=== PATIENT | male | born 1985 | race Caucasian/White ===

== ENCOUNTER 2019-05-02 10:44 | Inpatient (IN) ==
[2019-05-02 11:38] LABS: Basophils # (auto) 0.02 K/uL (0-0.2); Basophils % (auto) 0.3 %; Eosinophils # (auto) 0.09 K/uL (0-0.5); Eosinophils % (auto) 1.4 %; Hematocrit (blood only) 44.4 % (42-52); Hemoglobin 15.7 g/dL (14.0-18.0); Immature Granulocytes # (auto) 0.01 K/uL (0.00-0.02); Immature Granulocytes % (auto) 0.2 %; Lymphocytes # (auto) 1.28 K/uL (1.2-3.4); Lymphocytes % (auto) 20.2 %; Mean Corpuscular Hgb Conc 35.4 g/dL (32-36); Mean Corpuscular Volume 90.6 fL (80-100); Mean Platelet Volume 9.4 fL (7.4-10.4); Monocytes # (auto) 0.65 K/uL (0.11-0.59); Monocytes % (auto) 10.3 %; Neutrophils # (auto) 4.28 K/uL (1.4-6.5); Neutrophils % (auto) 67.6 %; Platelet Count 143 K/uL (130-400); RDW Coefficient of Variation 12.5 % (11.5-14.5); RDW Standard Deviation 41.2 fL (36.4-46.3); White Blood Count 6.33 K/uL (4.8-10.8)
[2019-05-02 11:55] LABS: Alanine Aminotransferase 65 U/L (12-78); Albumin Level 3.9 gm/dl (3.4-5.0); Aspartate Aminotransferase 51 U/L (15-37); BUN Creatinine Ratio 10.8 (10-20); Blood Urea Nitrogen 13 mg/dl (7-18); Calcium 9.1 mg/dl (8.5-10.1); Carbon Dioxide 29 mmol/L (21-32); Chloride 103 mmol/L (98-107); Est GFR (African American) 92.2; Est GFR (Non-African American) 79.5; Glucose 114 mg/dl (70-99); Lipase 349 U/L (73-393); Sodium 137 mmol/L (136-145)
[2019-05-02] MEDS ORDERED: LACTATED RINGER'S 2,000 ML IV ONE (11:55)
[2019-05-02] MEDS ORDERED: HYDROmorphone INJ 1 MG/ML SYRINGE IV STA ×2 (11:55→14:06)
[2019-05-02] MEDS ORDERED: ONDANSETRON INJ 2 MG/ML 2 ML VIAL IV STA (11:55)
[2019-05-02] MEDS ORDERED: FAMOTIDINE 20MG/5ML IV PUSH IV STA (11:56)
[2019-05-02 11:57] LABS: Alkaline Phosphatase 97 U/L (45-117); Bilirubin,Total 0.7 mg/dl (0.2-1); Globulin 3.8 gm/dl (2.5-4.0); Total Protein 7.7 gm/dl (6.4-8.2)
--- NOTE | 2019-05-02 12:05 | Emergency Department Note ---
History of Present Illness General Chief Complaint: Abdominal Pain Stated Complaint: RIGHT SIDE/FLANK/ABDOMINAL PAIN History of Present Illness Maximum Pain Intensity: 9 This patient is a 33-year-old male who presents to the emergency department from rehab for evaluation of epigastric abdominal pain radiating to the back that started yesterday. It is worse with certain movements. He also has had nausea with a few episodes of vomiting. He reports black stools. The patient reports a history of pancreatitis. He is currently in rehab for alcohol withdrawal. He denies any confusion or changes in vision. No fever. The pain is sharp and stabbing in nature. He has not taken anything for pain. Home Medications Home Medications Medication Instructions Recorded Confirmed Type alprazolam [Xanax] 2 mg PO HS 05/02/19 05/02/19 History diazepam [Valium] 10 mg PO HS 05/02/19 05/02/19 History esomeprazole magnesium [Nexium] 40 mg PO DAILY 05/02/19 05/02/19 History folic acid 1 mg PO DAILY 05/02/19 05/02/19 History levetiracetam [Keppra] 500 mg PO BID 05/02/19 05/02/19 History multivitamin 1 tab PO DAILY 05/02/19 05/02/19 History thiamine HCl (vitamin B1) 100 mg PO DAILY 05/02/19 05/02/19 History Allergies Allergy/AdvReac Type Severity Reaction Status Date / Time No Known Allergies Allergy Unverified 05/02/19 12:06 Past Med/Surg History Medical History Alcohol abuse GERD (gastroesophageal reflux disease) Surgical History History of shoulder surgery History of tonsillectomy Family History Grandfather (Maternal) Myocardial infarction Grandmother (Paternal) Coronary heart disease Other Alcohol abuse Social History Preferred Language: Slovak Communication Ability: Effective Ladle Filler Required: No Beliefs That Will Affect Care: None marital status: Current Living Situation: Spouse Current Living Situation Comment: House Other Information That Helps Us Care for You: No Feels Safe at Home: Yes Safety Concerns: Feels Safe At This Time Smoking Status: Never smoker Hx Alcohol Use: Yes (Hx of abuse) Alcohol type: hard liquor Alcohol type Comment: hx of ETOH abuse Alcohol Intake Frequency Comment: last drink 4 days ago Hx Substance Use: No Review of Systems A total of 10 systems reviewed and were otherwise negative Physical Exam Vital Signs: Vital Signs - 24 hr 05/02/19 11:04 05/02/19 11:45 05/02/19 13:17 Temperature 36.8 C Temperature Source Oral Pulse Rate 93 H Pulse Rate [Apical ] 74 71 Pulse Rhythm Regular Pulse Strength Normal Respiratory Rate 16 14 18 Respiratory Effort / Characteristics Non-Labored Respiratory Depth Normal Respiratory Patter n Regular Blood Pressure 117/74 Blood Pressure [Ri ght Arm] 155/92 H 103/52 L Blood Pressure Gwen n 88 Blood Pressure Gwen n [Right Arm] 113 69 Blood Pressure Pos ition Sitting Pulse Oximetry 97 96 95 Oxygen Delivery Me thod Room Air Room Air Sepsis Recent Feve r Within 48 Hours No Sepsis New/Unexpla ined Change in Men madiha Status No Sepsis Action Take n by Nursing No Action Required Constitutional: WD/WN, vitals as above Eyes: EOM intact bilaterally ENMT: external ear and nose normal, oropharynx normal Oral mucosa dry. Neck: trachea midline Respiratory: normal respiratory effort, lungs clear to auscultation Cardiovascular: RRR, no murmur, no edema Gastrointestinal (Abdomen): Bowel sounds present in all 4 quadrants. Sign ificant tenderness to palpation in the epigastric region. No guarding or rebound tenderness appreciated. Musculoskeletal: no cyanosis or clubbing, extremities motor strength 5/5 Skin: no rashes, warm and dry Neurologic: Alert and oriented x3. No focal motor deficits. Psychiatric: Acting appropriately Course Patient was seen and examined Vital signs including blood pressure were reviewed medications list was verified with patient Labs were obtained, and a saline lock was established Medications were ordered Upon reevaluation, the patient's pain was coming back. He was ordered an additional round of pain medication. We discussed his work-up. He voiced understanding. He was in agreement with the plan. [facility] evaluate the patient for possible inpatient management. [facility]ations [facility] Medications Folic Acid (Folvite) 1 mg PO DAILY [facility] Stop: 06/02/19 08:59 Last Admin: 05/03/19 09:00 Dose: 1 mg Documented by: [id number] Hydromorphone HCl (Dilaudid) 0.5 mg IV Q4H PRN PRN Reason: Severe Pain Stop: 05/16/19 18:00 Last Admin: 05/03/19 15:35 Dose: 0.5 mg Documented by: [id number] Admin: 05/03/19 11:13 Dose: 0.5 mg Documented by: [id number] Admin: 05/02/19 22:54 Dose: 0.5 mg Documented by: [id number] Admin: 05/02/19 18:27 Dose: 0.5 mg Documented by: [id number] Lactated Ringer's (Lr) 1,000 mls @ 150 mls/hr IV .Q6H40M [facility] Stop: 06/01/19 15:29 Last Admin: 05/03/19 19:23 Dose: 150 mls/hr Documented by: [id number] Infusion: 05/03/19 19:18 Dose: 150 mls/hr Documented by: [id number] Admin: 05/03/19 12:37 Dose: 150 mls/hr Documented by: [id number] Infusion: 05/03/19 12:18 Dose: 150 mls/hr Documented by: [id number] Admin: 05/03/19 05:37 Dose: 150 mls/hr Documented by: [id number] Infusion: 05/03/19 05:35 Dose: 150 mls/hr Documented by: [id number] Admin: 05/02/19 22:54 Dose: 150 mls/hr Documented by: [id number] Infusion: 05/02/19 22:52 Dose: 150 mls/hr Documented by: [id number] Admin: 05/02/19 16:11 Dose: 150 mls/hr Documented by: [id number] Lorazepam (Ativan) 1 - 3 mg PO UD PRN; Protocol PRN Reason: EtoH Withdrawal AWSS 6-10+ Stop: 06/01/19 18:00 Last Admin: 05/03/19 19:17 Dose: 1 mg Documented by: [id number] Admin: 05/03/19 09:11 Dose: 1 mg Documented by: [id number] Multivitamins (Multivitamin Tab) 1 tab PO DAILY [facility] Stop: 06/02/19 08:59 Last Admin: 05/03/19 09:00 Dose: 1 tab Documented by: [id number] Ondansetron HCl (Zofran) 4 mg IV Q6H PRN PRN Reason: Nausea Stop: 06/01/19 18:00 Last Admin: 05/03/19 15:40 Dose: 4 mg Documented by: [id number] Oxycodone/Acetaminophen (Percocet 5mg/325mg) 1 tab PO Q4H PRN PRN Reason: Moderate Pain Stop: 05/16/19 18:00 Last Admin: 05/03/19 19:18 Dose: 1 tab Documented by: [id number] Admin: 05/03/19 03:18 Dose: 1 tab Documented by: [id number] Pantoprazole Sodium (Protonix) 40 mg PO DAILY [facility] Stop: 06/02/19 08:59 Last Admin: 05/03/19 09:00 Dose: 40 mg Documented by: [id number] Thiamine HCl (Vitamin B-1) 100 mg PO DAILY [facility] Stop: 06/02/19 08:59 Last Admin: 05/03/19 09:00 Dose: 100 mg Documented by: [id number] Discontinued Medications Famotidine (Pepcid 20mg Iv Push) 20 mg IV ONE STA Stop: 05/02/19 11:57 Last Admin: 05/02/19 12:25 Dose: 20 mg Documented by: [id number] Gabapentin (Neurontin) 1,200 mg PO TODAY@1800 [facility] Stop: 05/02/19 19:01 Last Admin: 05/02/19 20:27 Dose: Not Given Documented by: [id number] Hydromorphone HCl (Dilaudid) 1 mg IV NOW STA Stop: 05/02/19 11:56 Last Admin: 05/02/19 12:26 Dose: 1 mg Documented by: [id number] Hydromorphone HCl (Dilaudid) 1 mg IV NOW STA Stop: 05/02/19 14:07 Last Admin: 05/02/19 14:27 Dose: 1 mg Documented by: [id number] Hydroxyzine HCl (Vistaril) 10 mg PO NOW STA Stop: 05/03/19 01:36 Last Admin: 05/03/19 02:06 Dose: 10 mg Documented by: [id number] Lactated Ringer's (Lr) 2,000 mls @ 999 mls/hr IV .Q2H1M ONE Stop: 05/02/19 13:55 Last Infusion: 05/02/19 14:32 Dose: 0 mls/hr Documented by: [id number] Admin: 05/02/19 12:26 Dose: 999 mls/hr Documented by: [id number] Promethazine HCl (Phenergan) 25 mg in 51 mls @ 204 mls/hr IV NOW STA Stop: 05/02/19 14:20 Last Infusion: 05/02/19 14:45 Dose: 0 mls/hr Documented by: [id number] Admin: 05/02/19 14:28 Dose: 204 mls/hr Documented by: [id number] Ioversol (Optiray 320 100ml) 92 ml IV ONCE PRN PRN Reason: Interaction Checking Stop: 05/06/19 12:39 Last Admin: 05/02/19 12:40 Dose: 92 ml Documented by: [id number] Lorazepam (Ativan) 0.5 mg PO NOW STA Stop: 05/03/19 01:32 Last Admin: 05/03/19 01:37 Dose: Not Given Documented by: [id number] Ondansetron HCl (Zofran) 4 mg IV NOW STA Stop: 05/02/19 11:56 Last Admin: 05/02/19 12:26 Dose: 4 mg Documented by: [id number] Medical Decision Making Differential Diagnosis + peptic ulcer disease and + biliary pathology Differential diagnosis: Pancreatitis, pancreatic cyst, abscess, bowel o bstruction, GI bleed, esophagitis, among others Medical Records Attestation: I reviewed the patient's medical records. Home Medications Current Medication List: was personally reviewed by me Laboratory Data Attestation: I reviewed the patient's lab results. Result diagrams: 05/03/19 06:58 05/03/19 06:58 Lab Results 05/02/19 05/02/19 Range/Units 11:24 11:24 WBC 6.33 (4.8-10.8) K/uL RBC 4.90 (4.7-6.1) M/uL Hgb 15.7 (14.0-18.0) g/dL Hct 44.4 (42-52) % MCV 90.6 (80-100) fL MCH 32.0 (25-34) pg MCHC 35.4 (32-36) g/dL RDW Std Deviation 41.2 (36.4-46.3) fL RDW Coeff of Ina 12.5 (11.5-14.5) % Plt Count 143 (130-400) K/uL MPV 9.4 (7.4-10.4) fL Immature Gran % (Auto) 0.2 % Neut % (Auto) 67.6 % Lymph % (Auto) 20.2 % [place] % (Auto) 10.3 % Eos % (Auto) 1.4 % Baso % (Auto) 0.3 % Immature Gran # (Auto) 0.01 (0.00-0.02) K/uL Neut # (Auto) 4.28 (1.4-6.5) K/uL Lymph # (Auto) 1.28 (1.2-3.4) K/uL [place] # (Auto) 0.65 H (0.11-0.59) K/uL Eos # (Auto) 0.09 (0-0.5) K/uL Baso # (Auto) 0.02 (0-0.2) K/uL Sodium 137 (136-145) mmol/L Potassium 4.0 (3.5-5.1) mmol/L Chloride 103 (98-107) mmol/L Carbon Dioxide 29 (21-32) mmol/L Anion Gap 5.0 (3-11) BUN 13 (7-18) mg/dl Creatinine 1.20 (0.6-1.4) mg/dl Est Cr Clr Drug Dosing Not Reportable Est GFR ( Amer) 92.2 Est GFR (Non-Af Amer) 79.5 BUN/Creatinine Ratio 10.8 (10-20) Glucose 114 H (70-99) mg/dl Calcium 9.1 (8.5-10.1) mg/dl Total Bilirubin 0.7 (0.2-1) mg/dl AST 51 H (15-37) U/L ALT 65 (12-78) U/L Alkaline Phosphatase 97 (45-117) U/L Total Protein 7.7 (6.4-8.2) gm/dl Albumin 3.9 (3.4-5.0) gm/dl Globulin 3.8 (2.5-4.0) gm/dl Albumin/Globulin Ratio 1.0 (0.9-2) Lipase 349 (73-393) U/L Imaging Data Attestation: I personally reviewed and interpreted this imaging study as follows: Radiologist's Impression: CT abdomen and pelvis with IV contrast only 1. Mild peripancreatic fat infiltration along the pancreatic head suggesting interstitial edematous pancreatitis. Correlate with lipase. No acute peripancreatic fluid collection. 2. No evidence of biliary ductal dilatation or radiopaque gallstones. 3. Circumferential bladder wall thickening may be due to underdistention or cystitis. Correlate with urinalysis. Electronically signed by: Jose Lomas M.D. 05/02/2019 12:55 PM Blood Pressure Blood Pressure Findings: Normal blood pressure MDM Narrative This patient is a 33-year-old male who presents to the emergency department with epigastric abdominal pain and vomiting. He has a history of alcohol abuse. On exam, vital signs were stable. He was very uncomfortable in appearance. He also appeared dry. Labs reveal no elevation of the lipase. Mild elevation of AST. I was concerned about GI bleed, acute versus chronic pancreatitis. H&H is appropriate. No significant anemia. Imaging was ordered and consistent with pancreatitis. Unfortunately, the patient was still symptomatic after multiple rounds of antiemetics and pain medication. For this reason, the patient will be evaluated by the hospitalist group for possible inpatient management. Impression & Plan Pancreatitis Discharge Plan Visit Data *Final* Discharge Date/Time: 05/02/19 17:34 Chief Complaint: Abdominal Pain Stated Complaint: RIGHT SIDE/FLANK/ABDOMINAL PAIN ED Provider: Edmar Fine ED Midlevel Provider: Lluvia Tapia Discharge Problem: Pancreatitis Patient Disposition: Admitted As Inpatient Condition: Fair Discharge Instructions Interventions: ED Discharge Assessment Last Done: 05/02/19 17:34
[2019-05-02] MEDS ORDERED: IOVERSOL 100ml IV PRN (12:40)
--- NOTE | 2019-05-02 12:56 | CT Scan Report ---
CT abd pelvis IV con only CLINICAL HISTORY: 33 years-old Male presenting with Epigastric abdominal pain n/v hx pancreatitis. TECHNIQUE: Multidetector CT of the abdomen and pelvis was performed after the administration of intra venous contrast. IV contrast: 92 mL of Optiray 320. One or more dose lowering techniques were used co nsistent with the principles of ALARA (as low as reasonably achievable), including automatic exposure control, mA or kV adjustment to individual patient size, and/or use of iterative reconstruction. COMPARISON: None. CT DOSE (mGy.cm): The estimated cumulative dose is 1164.45 mGycm. FINDINGS: Webbing Supervisor topogram: Unremarkable. Lung bases: Normal heart size. No pericardial or pleural effusion. Minimal dependent changes likely a telectasis. Liver: Normal morphology. Density suggestive of hepatic steatosis. No focal lesion. Patent hepatic va sculature. Biliary: No intrahepatic or extrahepatic biliary ductal dilatation. Normal gallbladder. Pancreas: Mild peripancreatic fat infiltration at the level of the pancreatic head and along the desc ending duodenum. Spleen: Normal. Adrenal glands: Normal. Kidneys and ureters: Normal. No hydronephrosis. Bladder: Circumferential bladder wall thickening. Pelvic organs: Prostate and seminal vesicles normal. Bowel: Normal appendix. No bowel obstruction. Peritoneal cavity: No free fluid or intraperitoneal gas. Lymph nodes: Few prominent peripancreatic lymph nodes, subcentimeter and likely reactive. Vasculature: Aorta and IVC patent and normal in caliber. Abdominal wall: Normal. Musculoskeletal: Normal. IMPRESSION: 1. Mild peripancreatic fat infiltration along the pancreatic head suggesting interstitial edematous pancreatitis. Correlate with lipase. No acute peripancreatic fluid collection. 2. No evidence of biliary ductal dilatation or radiopaque gallstones. 3. Circumferential bladder wall thickening may be due to underdistention or cystitis. Correlate with urinalysis. Electronically signed by: Jose Lomas M.D. 05/02/2019 12:55 PM
[2019-05-02] MEDS ORDERED: PROMETHAZINE 25 MG/51 ML BAG IV STA (14:06)
--- NOTE | 2019-05-02 15:38 | History & Physical Report ---
Date of Service May 02, 2019 Assessment & Plan (1) Pancreatitis: (2) Alcohol abuse: This is a 33-year-old male who has a significant past medical history for alcohol abuse who presents to ED secondary to acute onset of abdominal pain x1.5 days. In ED patient CBC and CMP were relatively unremarkable except mildly elevated glucose 114, AST 51. Lipase was normal at 349. CT scan of abdomen pelvis: Mild peripancreatic fat infiltration low pancreatic head suggesting interstitial edematous pancreatitis, also noted circumferential bladder wall thickening concerning for underinflation or cystitis. He received 3 L of IVF while in ED along with 1 mg Dilaudid x2. He currently is feeling improved and pain has improved to 6/10. admit to med/surg tele Continue aggressive fluid resuscitation with LR at 150 cc/h N.p.o. except meds Pain control with 0.5 mg Dilaudid every 4 hours severe pain/5325 oxycodone as needed moderate pain Repeat CBC, CMP, lipase in a.m. Monitor for signs or symptoms of withdrawal (3) S/P alcohol detoxification: Patient self admitted to [facility] alcohol detoxification on 04/29/2019 We will continue their protocol Keppra 500 mg twice daily x14 days for seizure prophylaxis Continue multivitamin, folic acid, thiamine supplementation Continue Valium at bedtime x1, then change to PRN (patient was treated with Valium 10 mg 3 times daily on 04/29, Valium 10 mg twice daily on 04/30, Valium 10 mg at bedtime x2, then as needed) Will place on gabapentin per protocol Lorazepam as needed for at risk Monitor for signs and symptoms of withdrawal, last drink was 04/28 (4) GERD (gastroesophageal reflux disease): continue PPI (5) DVT prophylaxis: SCD/TEDS Disposition: admit to med/surg tele, pt to return to [facility] for ETOH Detox Follow up: PCP in [place] Patient was seen and examined in collaboration with Dr. Ramirez, please see addendum History of Present Illness Chief Complaint: Abdominal pain x1.5 days. Primary Care Provider: NO PCP This is a 33-year-old male who has a significant past medical history for alcohol abuse who presents to ED secondary to acute onset of abdominal pain x1.5 days. He elicits yesterday he had low back pain which he attributed to his chronic back pain; however last evening pain migrated to his epigastric region. Pain was constant, improved with lying down, worse with sitting forward and movement, described as sharp and stabbing with occasional burning. Pain rated as a 9/10. Had similar symptoms in past with acute pancreatitis. Did not try anything for pain relief. Of significance patient recently obtained sobriety in 2018. He recently got in a destination wedding in [facility] on 04/13. "I use this as a reason to binge." He stated [place]-inclusive resort which he states "I cannot even tell you how much I had because I cannot remember." When he returned home from [facility] he continued drinking until 4 days ago on 04/29/2019 when he opted to sign himself into detox at [facility]. He has been at detox facility since 04/29. "They keep you sedated for approximately 15 hours of the day; however, I was more awake yesterday because of pain." He denies any fever, chills, sweats, lightheadedness, dizziness, syncope, chest pain, shortness breath, palpitation, cough, hemoptysis, emesis, diarrhea, change in bowel or urinary habits. Prior to arrival he was significantly nauseous, but this is since subsided. This is his third episode of pancreatitis, age related to alcohol use. "I know what I need to do to stop this." In ED patient CBC and CMP were relatively unremarkable except mildly elevated g lucose 114, AST 51. Lipase was normal at 349. CT scan of abdomen pelvis: Mild peripancreatic fat infiltration low pancreatic head suggesting interstitial edematous pancreatitis, also noted circumferential bladder wall thickening concerning for underinflation or cystitis. He received 3 L of IVF while in ED along with 1 mg Dilaudid x2. He currently is feeling improved and pain has improved to 6/10. Allergies Allergy/AdvReac Type Severity Reaction Status Date / Time No Known Allergies Allergy Unverified 05/02/19 12:06 Home Medications Home Medications Medication Instructions Recorded Confirmed Type alprazolam [Xanax] 2 mg PO HS 05/02/19 05/02/19 History diazepam [Valium] 10 mg PO HS 05/02/19 05/02/19 History esomeprazole magnesium [Nexium] 40 mg PO DAILY 05/02/19 05/02/19 History folic acid 1 mg PO DAILY 05/02/19 05/02/19 History levetiracetam [Keppra] 500 mg PO BID 05/02/19 05/02/19 History multivitamin 1 tab PO DAILY 05/02/19 05/02/19 History thiamine HCl (vitamin B1) 100 mg PO DAILY 05/02/19 05/02/19 History Past Med/Surg History Surgical History (Updated 05/02/19 @ 15:54 by Adeline Kendall PA-C) History of shoulder surgery History of tonsillectomy Family History (Updated 05/02/19 @ 15:52 by Adeline Kendall PA-C) Grandfather (Maternal) Myocardial infarction Grandmother (Paternal) Coronary heart disease Other Alcohol abuse Social History (Updated 05/02/19 @ 15:52 by Adeline Kendall PA-C) Preferred Language: Panamanian Communication Ability: Effective Painter Apprentice Required: No Beliefs That Will Affect Care: None marital status: Current Living Situation: Spouse Current Living Situation Comment: House Other Information That Helps Us Care for You: No Feels Safe at Home: Yes Safety Concerns: Feels Safe At This Time Smoking Status: Never smoker Hx Alcohol Use: Yes (Hx of abuse) Alcohol type: hard liquor Alcohol type Comment: hx of ETOH abuse Alcohol Intake Frequency Comment: last drink 4 days ago Hx Substance Use: No Physical Exam Physical Exam: Constitutional: WD/WN, male, vitals as above, NAD, sitting up in bed, pleasant, conversing easily Head: Normocephalic, Atraumatic Eyes: PERRL, conjunctivae normal, anicteric sclerae ENMT: external ear and nose normal, oropharynx normal Neck: trachea midline, no thyromegaly normal visual inspection Respiratory: normal respiratory effort, lungs clear to auscultation, no wheeze, rales, rhonchi. Normal insp/exp effort, no accessory muscle use Cardiovascular: RRR, no murmur, no edema Vessels: no JVD or carotid bruit Chest: normal inspection of chest Abdomen: normal bowel sounds, soft, tender to palpation in epigastrium, no rebound, guarding, rigidity, no hepatosplenomegaly Musculoskeletal: no cyanosis or clubbing, extremities motor strength 5/5 Skin: no rashes, warm and dry normal turgor Neurologic: PERRL, EOMI, accommodation nl, no face palsy, no dysarthria CN's II-XI intact bilaterally and moves all extremities Psychiatric: A+Ox3, euthymic affect Lymphatic: no cervical or axillary lymphadenopathy : deferred Results & Data Vital Signs (Past 12 Hours) Vital Signs Temp Pulse Pulse Resp BP BP Pulse Ox 05/02/19 13:17 71 18 103/52 L 95 05/02/19 11:45 74 14 155/92 H 96 05/02/19 11:04 36.8 C 93 H 16 117/74 97 Laboratory Results Short CBC 05/02/19 05/02/19 Range/Units 11:24 11:24 WBC 6.33 (4.8-10.8) K/uL Hgb 15.7 (14.0-18.0) g/dL Hct 44.4 (42-52) % Plt Count 143 (130-400) K/uL Creatinine 1.20 (0.6-1.4) mg/dl BMP 05/02/19 11:24 Sodium 137 Potassium 4.0 Chloride 103 Carbon Dioxide 29 BUN 13 Creatinine 1.20 Glucose 114 H Calcium 9.1 Liver Function 05/02/19 Range/Units 11:24 Total Bilirubin 0.7 (0.2-1) mg/dl AST 51 H (15-37) U/L ALT 65 (12-78) U/L Alkaline Phosphatase 97 (45-117) U/L Albumin 3.9 (3.4-5.0) gm/dl Diagnostic Findings CT abd/Pelvis: IMPRESSION: 1. Mild peripancreatic fat infiltration along the pancreatic head suggesting interstitial edematous pancreatitis. Correlate with lipase. No acute peripancreatic fluid collection. 2. No evidence of biliary ductal dilatation or radiopaque gallstones. 3. Circumferential bladder wall thickening may be due to underdistention or cystitis. Correlate with urinalysis. Medications Administered Ioversol (Optiray 320 100ml) 92 ml IV ONCE PRN PRN Reason: Interaction Checking Stop: 05/06/19 12:39 Last Admin: 05/02/19 12:40 Dose: 92 ml Documented by: [id number] Discontinued Medications Famotidine (Pepcid 20mg Iv Push) 20 mg IV ONE STA Stop: 05/02/19 11:57 Last Admin: 05/02/19 12:25 Dose: 20 mg Documented by: [id number] Hydromorphone HCl (Dilaudid) 1 mg IV NOW STA Stop: 05/02/19 11:56 Last Admin: 05/02/19 12:26 Dose: 1 mg Documented by: [id number] Hydromorphone HCl (Dilaudid) 1 mg IV NOW STA Stop: 05/02/19 14:07 Last Admin: 05/02/19 14:27 Dose: 1 mg Documented by: [id number] Lactated Ringer's (Lr) 2,000 mls @ 999 mls/hr IV .Q2H1M ONE Stop: 05/02/19 13:55 Last Infusion: 05/02/19 14:32 Dose: 0 mls/hr Documented by: [id number] Admin: 05/02/19 12:26 Dose: 999 mls/hr Documented by: [id number] Promethazine HCl (Phenergan) 25 mg in 51 mls @ 204 mls/hr IV NOW STA Stop: 05/02/19 14:20 Last Admin: 05/02/19 14:28 Dose: 204 mls/hr Documented by: [id number] Ondansetron HCl (Zofran) 4 mg IV NOW STA Stop: 05/02/19 11:56 Last Admin: 05/02/19 12:26 Dose: 4 mg Documented by: [id number] Code Status & VTE Plan Code Status Full Code VTE Prophylaxis Plan VTE Prophylaxis will be ordered: Yes Supervising Physician Co-Signing Physician Notes I have seen and examined the patient and have discussed the case with the provider above. I agree with the assessment and plan as stated with the following exceptions. After my conversation with him, he doesn't want any sedatives or Keppra. He is also declining gabapentin as he is feeling well now 3 days after last drink, and would like to get better and moving forward with therapy. He appears to have a good understanding of what is going on--states that he is an alcoholic, and now understands he cannot have ANY alcohol, understands pancreatitis and why this is occurring as well as what to expect moving forward, and is excited about his sobriety for his two young daughters as he wasn't a parent the last two times this happened. He is clearly dealing with many stressors including co-parenting two small children, recently getting , mourning the of his brother who was a green beret JULIANN, and dealing with the stress of being away from home on the holidays. Physical exam reveals stable vital signs, clear lungs to auscultation, no acute distress, S1/2 heard on cardiac auscultation without murmurs, severe epigastric pain to palpation with some additional generalized tenderness. Cont supportive care efforts with LR resuscitation, pain control and antiemetics as needed. Keppra and valium titration stopped at patient request. No gabapentin. Lorazepam only as needed or per [place] recommendations. Would encourage patient to establish care with a primary care physician when he returns to [place] area. James,
[2019-05-02] MEDS: LACTATED RINGER'S 1,000 ML IV SCH ×2 (16:11→22:54)
[2019-05-02] MEDS ORDERED: ONDANSETRON INJ 2 MG/ML 2 ML VIAL IV PRN (18:01)
[2019-05-02] MEDS ORDERED: ALUMINUM/MAGNESIUM SUSP 30 ML UDC PO PRN (18:01)
[2019-05-02] MEDS ORDERED: GABAPENTIN 1200MG ALCOHOL WITHDRAWAL LOAD PO STA (18:01)
[2019-05-02] MEDS ORDERED: MAGNESIUM HYDROXIDE SUSP 30 ML UDC PO PRN (18:01)
[2019-05-02] MEDS ORDERED: POLYETHYLENE (MIRALAX) 17 GM PACK PO PRN (18:01)
[2019-05-02] MEDS ORDERED: ACETAMINOPHEN 325 MG TAB PO PRN (18:01)
[2019-05-02] MEDS: HYDROmorphone INJ 0.5 MG/0.5 ML SYR IV PRN ×2 (18:27→22:54)
[2019-05-02] MEDS ORDERED: GABAPENTIN 600 MG TAB PO SCH (19:00)
[2019-05-02 20:43] LABS: Appearance Urine Clear (Clear); Bilirubin Urine Negative (Negative); Blood Urine Negative (Negative); Color Urine Yellow; Glucose Urine UA Negative (Negative); Ketones Urine Negative (Negative); Leukocyte Esterase Urine Negative (Negative); Nitrite Urine Negative (Negative); Protein Urine Negative (Negative); Urobilinogen Urine Negative (Negative)
[2019-05-02] MEDS ORDERED: levETIRAcetam 500 MG TAB PO SCH (21:00)
[2019-05-02] MEDS ORDERED: diazePAM 5 MG TABLET PO SCH (21:00)
[2019-05-02] MEDS ORDERED: ALPRAZolam 0.5 MG TABLET PO SCH (21:00)
[2019-05-03] MEDS ORDERED: LORazepam 0.5 MG TAB PO STA (01:31)
[2019-05-03] MEDS ORDERED: hydrOXYzine HCl 10 MG TAB PO STA (01:35)
[2019-05-03] MEDS: OXYCODONE/ACETAMINOPHEN 5mg/325mg TAB PO PRN ×2 (03:18→19:18)
[2019-05-03] MEDS: LACTATED RINGER'S 1,000 ML IV SCH ×3 (05:37→19:23)
[2019-05-03 07:26] LABS: Basophils # (auto) 0.01 K/uL (0-0.2); Basophils % (auto) 0.2 %; Eosinophils # (auto) 0.09 K/uL (0-0.5); Eosinophils % (auto) 1.5 %; Hematocrit (blood only) 40.8 % (42-52); Hemoglobin 14.1 g/dL (14.0-18.0); Lymphocytes # (auto) 1.76 K/uL (1.2-3.4); Lymphocytes % (auto) 29.9 %; Mean Corpuscular Hemoglobin 31.5 pg (25-34); Mean Corpuscular Hgb Conc 34.6 g/dL (32-36); Mean Corpuscular Volume 91.1 fL (80-100); Mean Platelet Volume 9.6 fL (7.4-10.4); Monocytes # (auto) 0.65 K/uL (0.11-0.59); Monocytes % (auto) 11.1 %; Neutrophils # (auto) 3.37 K/uL (1.4-6.5); Neutrophils % (auto) 57.3 %; Platelet Count 130 K/uL (130-400); RDW Coefficient of Variation 12.5 % (11.5-14.5); RDW Standard Deviation 41.5 fL (36.4-46.3); Red Blood Count 4.48 M/uL (4.7-6.1); White Blood Count 5.88 K/uL (4.8-10.8)
[2019-05-03 08:08] LABS: Albumin Level 3.3 gm/dl (3.4-5.0); BUN Creatinine Ratio 10.4 (10-20); Calcium 8.7 mg/dl (8.5-10.1); Creatinine Clr Calc Pharmacy 127.5 ml/min; Est GFR (African American) 105.9; Est GFR (Non-African American) 91.4; Potassium 3.5 mmol/L (3.5-5.1)
[2019-05-03 08:11] LABS: Bilirubin,Total 0.7 mg/dl (0.2-1); Globulin 3.2 gm/dl (2.5-4.0); Total Protein 6.5 gm/dl (6.4-8.2)
[2019-05-03] MEDS: FOLIC ACID 1 MG TAB PO SCH (09:00)
[2019-05-03] MEDS: THIAMINE HCL 100 MG TAB PO SCH (09:00)
[2019-05-03] MEDS: PANTOprazole 40 MG TAB PO SCH (09:00)
[2019-05-03] MEDS: MULTIVITAMIN TAB PO SCH (09:00)
[2019-05-03] MEDS: LORazepam 1 MG TAB PO PRN ×2 (09:11→19:17)
[2019-05-03] MEDS: HYDROmorphone INJ 0.5 MG/0.5 ML SYR IV PRN ×2 (11:13→15:35)
[2019-05-03] MEDS ORDERED: GABAPENTIN 600 MG TAB PO SCH ×2 (14:00)
[2019-05-03] MEDS ORDERED: diazePAM 5 MG TABLET PO PRN (21:00)
--- NOTE | 2019-05-03 21:00 | Hospitalist Progress Note ---
Date of Service May 03, 2019 Assessment & Plan (1) Abdominal pain: Presented with abdominal pain after binge drinking for about 2 weeks. LFTs essentially normal (except for minimally elevated AST). Initial lipase is 349, repeat 269. CT of abdomen and pelvis showed mild peripancreatic fat infiltration along the pancreatic head suggesting interstitial edematous pancreatitis. No biliary tract abnormalities were appreciated. Seems unlikely that patient has acute pancreatitis with a normal serum lipase. Consider gastritis as another etiology of abdominal pain. Symptoms are improving. Start clear liquid diet. Continue PPI. (2) Alcohol withdrawal: Last alcohol consumption was about 5 days ago. Patient was receiving withdrawal protocol at [facility], but felt too sedated. He declined other options such as gabapentin protocol. Having mild withdrawal symptoms at this time. Continue lorazepam as needed. Continue thiamine, multivitamins. (3) Alcoholism: Ongoing support/counseling. Patient is motivated to be sober and plans on returning to [facility] once he is medically stable. (4) DVT prophylaxis: SCDs ordered. Ambulate. (5) Discharge planning issues: Anticipated return to [facility] once medically stable. Follow-up with PCP in [place] upon returning home. Subjective Recheck for abdominal pain and other problems. Patient seen in their room around 1500. Feels better. Epigastric pain improved. Some nausea, but no emesis. No diarrhea, melena, hematochezia. Required a dose of lorazepam this morning with good results. No hallucinations. Review of Systems: Constitutional- no fever. Cardiac- no chest pain. Pulmonary- no cough or SOB. GI- as noted above. - no urinary symptoms. Otherwise, as noted above. Physical Exam Constitutional: no acute distress Respiratory: no respiratory distress Auscultation: lungs clear to auscultation bilaterally Cardiovascular: Rate/Rhythm: regular rate and regular rhythm Heart Sounds: no gallop, no murmur and no cardiac rub Vessels: no JVD Extremities: no calf tenderness and no edema Gastrointestinal (Abdomen): Inspection/Auscultation: abdomen not distended and + abnormal bowel sounds (quiet) Percussion/Palpation: + abdomen tender (moderate epigastric tenderness) and abdomen soft Skin: no rashes, warm and dry Psychiatric: Orientation: alert and oriented x 3 Results & Data Vital Signs (Past 12 Hours) Vital Signs Temp Pulse Pulse Resp BP BP Pulse Ox 05/03/19 20:02 37.2 C 87 18 149/83 H 94 05/03/19 15:59 74 05/03/19 15:56 36.7 C 82 18 120/73 97 05/03/19 11:30 36.7 C 85 18 145/81 H 96 Laboratory Results Laboratory Results - last 24 hr 05/03/19 05/03/19 06:58 06:58 WBC 5.88 RBC 4.48 L Hgb 14.1 Hct 40.8 L MCV 91.1 MCH 31.5 MCHC 34.6 RDW Std Deviation 41.5 RDW Coeff of Ina 12.5 Plt Count 130 MPV 9.6 Immature Gran % (Auto) 0.0 Neut % (Auto) 57.3 Lymph % (Auto) 29.9 [place] % (Auto) 11.1 Eos % (Auto) 1.5 Baso % (Auto) 0.2 Immature Gran # (Auto) 0.00 Neut # (Auto) 3.37 Lymph # (Auto) 1.76 [place] # (Auto) 0.65 H Eos # (Auto) 0.09 Baso # (Auto) 0.01 Sodium 139 Potassium 3.5 Chloride 103 Carbon Dioxide 30 Anion Gap 5.0 BUN 11 Creatinine 1.07 Est Cr Clr Drug Dosing 127.5 Est GFR ( Amer) 105.9 Est GFR (Non-Af Amer) 91.4 BUN/Creatinine Ratio 10.4 Glucose 86 Calcium 8.7 Total Bilirubin 0.7 AST 42 H ALT 60 Alkaline Phosphatase 78 Total Protein 6.5 Albumin 3.3 L Globulin 3.2 Albumin/Globulin Ratio 1.0 Triglycerides 220 H Cholesterol 186 LDL Cholesterol, Calc 98 VLDL Cholesterol, Calc 44 HDL Cholesterol 44 Cholesterol/HDL Ratio 4 Lipase 269
[2019-05-04] MEDS: LACTATED RINGER'S 1,000 ML IV SCH ×3 (01:40→15:30)
[2019-05-04] MEDS: HYDROmorphone INJ 0.5 MG/0.5 ML SYR IV PRN ×2 (04:32→15:32)
[2019-05-04 07:06] LABS: BUN Creatinine Ratio 10.7 (10-20); Calcium 8.7 mg/dl (8.5-10.1); Creatinine Clr Calc Pharmacy 144.9 ml/min; Est GFR (African American) 123.8; Est GFR (Non-African American) 106.9; Potassium 3.3 mmol/L (3.5-5.1)
[2019-05-04] MEDS: MULTIVITAMIN TAB PO SCH (08:55)
[2019-05-04] MEDS: THIAMINE HCL 100 MG TAB PO SCH (08:55)
[2019-05-04] MEDS: FOLIC ACID 1 MG TAB PO SCH (08:55)
[2019-05-04] MEDS: PANTOprazole 40 MG TAB PO SCH ×2 (08:55→21:09)
[2019-05-04] MEDS: OXYCODONE/ACETAMINOPHEN 5mg/325mg TAB PO PRN ×2 (11:49→19:43)
[2019-05-04] MEDS ORDERED: GABAPENTIN 600 MG TAB PO SCH (18:00)
--- NOTE | 2019-05-04 19:36 | Hospitalist Progress Note ---
Date of Service May 04, 2019 Assessment & Plan (1) Abdominal pain: Presented with abdominal pain after binge drinking for about 2 weeks. LFTs essentially normal (except for minimally elevated AST). Initial lipase is 349, repeat 269. CT of abdomen and pelvis showed mild peripancreatic fat infiltration along the pancreatic head suggesting interstitial edematous pancreatitis. No biliary tract abnormalities were appreciated. Seems unlikely that patient has acute pancreatitis with a normal serum lipase. Symptomatic improvement with Maalox. Suspect gastritis secondary to recent alcohol consumption. Symptoms are improving. Increase PPI to BID. Advance diet as tolerated. (2) Alcohol withdrawal: Last alcohol consumption was about 6 days ago. [facility], but felt too sedated. He declined other options such as gabapentin protocol. Having mild withdrawal symptoms at this time. Continue lorazepam as needed. Continue thiamine, multivitamins. (3) Alcoholism: Ongoing support/counseling. Patient is motivated to be sober and plans on returning to [facility] once he is medically stable. (4) DVT prophylaxis: SCDs ordered. Ambulate. (5) Discharge planning issues: Anticipated return to [facility] once medically stable. Follow-up with PCP in [place] upon returning home. Subjective Recheck for abdominal pain and other problems. Patient seen in their room around 1050. Feels better. Has some epigastric discomfort early this morning- Maalox helped. Some nausea or vomiting. No melena, hematochezia. Experiencing some shakes and sweats. No hallucinations. Review of Systems: Constitutional- no fever. Cardiac- no chest pain. Pulmonary- no cough or SOB. GI- as noted above. - no urinary symptoms. Otherwise, as noted above. Physical Exam Constitutional: no acute distress Respiratory: no respiratory distress Auscultation: lungs clear to auscultation bilaterally Cardiovascular: Rate/Rhythm: regular rate and regular rhythm Heart Sounds: no gallop, no murmur and no cardiac rub Vessels: no JVD Extremities: no calf tenderness and no edema Gastrointestinal (Abdomen): Inspection/Auscultation: normal bowel sounds; abdomen not distended Percussion/Palpation: + abdomen tender (mild epigastric tenderness) and abdomen soft Skin: no rashes, warm and dry Psychiatric: Orientation: alert and oriented x 3 Results & Data Vital Signs (Past 12 Hours) Vital Signs Temp Pulse Pulse Resp BP BP Pulse Ox 05/04/19 16:07 74 05/04/19 16:00 36.7 C 72 16 130/79 97 05/04/19 09:00 37.1 C 78 18 155/73 H 95 05/04/19 08:00 65 Laboratory Results Laboratory Results - last 24 hr 05/04/19 06:14 Sodium 138 Potassium 3.3 L Chloride 103 Carbon Dioxide 28 Anion Gap 7.0 BUN 10 Creatinine 0.94 Est Cr Clr Drug Dosing 144.9 Est GFR ( Amer) 123.8 Est GFR (Non-Af Amer) 106.9 BUN/Creatinine Ratio 10.7 Glucose 84 Calcium 8.7
[2019-05-04] MEDS: LORazepam 1 MG TAB PO PRN (19:44)
[2019-05-05 06:26] LABS: Hematocrit (blood only) 41.3 % (42-52); Hemoglobin 14.8 g/dL (14.0-18.0); Mean Corpuscular Hemoglobin 32.1 pg (25-34); Mean Corpuscular Hgb Conc 35.8 g/dL (32-36); Mean Corpuscular Volume 89.6 fL (80-100); Mean Platelet Volume 9.1 fL (7.4-10.4); Platelet Count 149 K/uL (130-400); RDW Coefficient of Variation 12.2 % (11.5-14.5); RDW Standard Deviation 39.9 fL (36.4-46.3); Red Blood Count 4.61 M/uL (4.7-6.1); White Blood Count 6.34 K/uL (4.8-10.8)
[2019-05-05 07:01] LABS: Albumin Level 3.5 gm/dl (3.4-5.0); BUN Creatinine Ratio 8.4 (10-20); Bilirubin Direct 0.2 mg/dl (0-0.2); Calcium 8.9 mg/dl (8.5-10.1); Creatinine Clr Calc Pharmacy 128.9 ml/min; Est GFR (African American) 108.3; Est GFR (Non-African American) 93.5; Potassium 3.4 mmol/L (3.5-5.1)
[2019-05-05 07:04] LABS: Bilirubin,Total 0.7 mg/dl (0.2-1); Globulin 3.6 gm/dl (2.5-4.0); Total Protein 7.1 gm/dl (6.4-8.2)
[2019-05-05] MEDS: OXYCODONE/ACETAMINOPHEN 5mg/325mg TAB PO PRN (08:16)
[2019-05-05] MEDS: PANTOprazole 40 MG TAB PO SCH ×2 (08:17→19:45)
[2019-05-05] MEDS: LORazepam 1 MG TAB PO PRN ×2 (08:17→19:44)
[2019-05-05] MEDS: THIAMINE HCL 100 MG TAB PO SCH (08:17)
[2019-05-05] MEDS: FOLIC ACID 1 MG TAB PO SCH (08:18)
[2019-05-05] MEDS: MULTIVITAMIN TAB PO SCH (08:18)
[2019-05-05] MEDS ORDERED: LORazepam 1 MG TAB PO PRN (11:45)
[2019-05-05] MEDS ORDERED: LORazepam 1 MG TAB PO ONE (11:48)
[2019-05-05] MEDS: HYDROmorphone INJ 0.5 MG/0.5 ML SYR IV PRN (19:44)
--- NOTE | 2019-05-05 20:55 | Hospitalist Progress Note ---
Date of Service May 05, 2019 Assessment & Plan (1) Abdominal pain: Presented with abdominal pain after binge drinking for about 2 weeks. LFTs essentially normal (except for minimally elevated AST). Initial lipase is 349, repeat 269. CT of abdomen and pelvis showed mild peripancreatic fat infiltration along the pancreatic head suggesting interstitial edematous pancreatitis. No biliary tract abnormalities were appreciated. Seems unlikely that patient has acute pancreatitis with a normal serum lipase. Symptomatic improvement with Maalox. Suspect gastritis secondary to recent alcohol consumption. Symptoms are improving. Increase PPI to BID. Advance diet as tolerated. (2) Alcohol withdrawal: Last alcohol consumption was about 7 days ago. [facility] felt too sed[facility]. He declined other options such as gabapentin protocol. Having mild withdrawal symptoms at this time. Continue lorazepam as needed. Continue thiamine, multivitamins. (3) Benzodiazepine dependence: Was taking alprazolam chronically at home. Probably withdrawing from benzodiazepines as well as alcohol. Management as noted above. (4) Alcoholism: Ongoing support/counseling. Patient is motivated to be sober and plans on returning to [facility] once he is medically stable. (5) DVT prophylaxis: SCDs ordered. Ambulate. (6) Discharge planning issues: [facility]. Follow-up with PCP in [place] upon returning home. Subjective Recheck for multiple problems. Patient seen in their room around 1140. Epigastric pain improved. Tolerating solid diet, but need to be careful. No melena, hematochezia. Still experiencing some shakes and sweats. Asked for a dose of Percocet this morning- more for anxiety than pain. No hallucinations. Review of Systems: Constitutional- no fever. Cardiac- no chest pain. Pulmonary- no cough or SOB. GI- as noted above. - no urinary symptoms. Otherwise, as noted above. Physical Exam Constitutional: no acute distress Respiratory: no respiratory distress Auscultation: lungs clear to auscultation bilaterally Cardiovascular: Rate/Rhythm: regular rate and regular rhythm Heart Sounds: no gallop, no murmur and no cardiac rub Vessels: no JVD Extremities: no calf tenderness and no edema Gastrointestinal (Abdomen): Inspection/Auscultation: normal bowel sounds; abdomen not distended Percussion/Palpation: abdomen soft; abdomen nontender Skin: no rashes, warm and dry Psychiatric: Orientation: alert and oriented x 3 Results & Data Vital Signs (Past 12 Hours) Vital Signs Temp Pulse Pulse Resp BP BP Pulse Ox 05/05/19 16:03 37.0 C 68 16 105/63 95 05/05/19 12:01 36.7 C 79 16 119/75 97 05/05/19 10:32 67 Laboratory Results 05/05/19 05:43 05/05/19 05:43
[2019-05-05] MEDS ORDERED: POTASSIUM CHLORIDE 20 MEQ TABCR PO ONE (21:00)
[2019-05-06] MEDS: HYDROmorphone INJ 0.5 MG/0.5 ML SYR IV PRN ×3 (00:59→14:16)
[2019-05-06] MEDS ORDERED: GABAPENTIN 600 MG TAB PO SCH (06:00)
[2019-05-06] MEDS: PANTOprazole 40 MG TAB PO SCH (08:10)
[2019-05-06] MEDS: MULTIVITAMIN TAB PO SCH (08:10)
[2019-05-06] MEDS: FOLIC ACID 1 MG TAB PO SCH (08:11)
[2019-05-06] MEDS: THIAMINE HCL 100 MG TAB PO SCH (08:11)
--- NOTE | 2019-05-06 14:00 | Hospitalist Progress Note ---
Date of Service May 06, 2019 Assessment & Plan (1) Abdominal pain: Presented with abdominal pain after binge drinking for about 2 weeks. LFTs essentially normal (except for minimally elevated AST). Initial lipase is 349, repeat 269. CT of abdomen and pelvis showed mild peripancreatic fat infiltration along the pancreatic head suggesting interstitial edematous pancreatitis. No biliary tract abnormalities were appreciated. Seems unlikely that patient has acute pancreatitis with a normal serum lipase. Symptomatic improvement with Maalox. Suspect gastritis secondary to recent alcohol consumption. No gross GI bleeding. Hgb 15.7 --> 14.1 (with IV fluids) --> 14.8. Increase PPI to BID. Symptoms improved. Diet advanced and tolerated. (2) Alcohol withdrawal: Last alcohol consumption was about 7 days ago. [facility] but felt too sed[facility]. He declined other options such as gabapentin protocol. Received lorazepam PRN for withdrawal symptoms and anxiety; last dose about 18 hours ago. Continue thiamine, multivitamins. (3) Benzodiazepine dependence: Was taking alprazolam chronically at home. Probably withdrawing from benzodiazepines as well as alcohol. Management as noted above. (4) Alcoholism: Ongoing support/counseling. Patient is motivated to be sober is returning to [facility] for ongoing rehab. (5) DVT prophylaxis: SCDs ordered. Ambulating. (6) Discharge planning issues: [facility] Follow-up with PCP in [place] upon returning home. Subjective Doing much better. Tolerating solid foods with minimal discomfort. No nausea or vomiting. Passing stool. No melena or hematochezia. Withdrawal symptoms much better. Last PRN lorazepam dose was last evening. Physical Exam Constitutional: no acute distress Respiratory: no respiratory distress Auscultation: lungs clear to auscultat ion bilaterally Cardiovascular: Rate/Rhythm: regular rate and regular rhythm Heart Sounds: no gallop, no murmur and no cardiac rub Vessels: no JVD Extremities: no calf tenderness and no edema Gastrointestinal (Abdomen): Inspection/Auscultation: normal bowel sounds; abdomen not distended Percussion/Palpation: abdomen soft; abdomen nontender Skin: no rashes, warm and dry Psychiatric: Orientation: alert and oriented x 3 Results & Data Vital Signs (Past 12 Hours) Vital Signs Temp Pulse Resp BP Pulse Ox 05/06/19 07:46 36.7 C 70 16 107/67 97
--- NOTE | 2019-05-06 14:17 | Discharge Summary ---
Date of Service May 06, 2019 Admission HPI Per Admitting Provider This is a 33-year-old male who has a significant past medical history for alcohol abuse who presents to ED secondary to acute onset of abdominal pain x1.5 days. He elicits yesterday he had low back pain which he attributed to his chronic back pain; however last evening pain migrated to his epigastric region. Pain was constant, improved with lying down, worse with sitting forward and movement, described as sharp and stabbing with occasional burning. Pain rated as a 9/10. Had similar symptoms in past with acute pancreatitis. Did not try anything for pain relief. Of significance patient recently obtained sobriety in 2018. He recently got in a destination wedding in [facility] on 04/13. "I use this as a reason to binge." He stated all-inclusive resort which he states "I cannot even tell you how much I had because I cannot remember." When he returned home from [facility] he continued drinking until 4 days ago on 04/29/2019 when he opted to sign himself into detox at [facility]. He has been at detox facility since 04/29. "They keep you sedated for approximately 15 hours of the day; however, I was more awake yesterday because of pain." He denies any fever, chills, sweats, lightheadedness, dizziness, syncope, chest pain, shortness breath, palpitation, cough, hemoptysis, emesis, diarrhea, change in bowel or urinary habits. Prior to arrival he was significantly nauseous, but this is since subsided. This is his third episode of pancreatitis, age related to alcohol use. "I know what I need to do to stop this." In ED patient CBC and CMP were relatively unremarkable except mildly elevated glucose 114, AST 51. Lipase was normal at 349. CT scan of abdomen pelvis: Mild peripancreatic fat infiltration low pancreatic head suggesting interstitial edematous pancreatitis, also noted circumferential bladder wall thickening concerning for underinflation or cystitis. He received 3 L of IVF while in ED along with 1 mg Dilaudid x2. He currently is feeling improved and pain has improved to 6/10. Principal Diagnosis abdominal pain- probable gastritis alcohol dependence & withdrawal benzodiazepine dependence & withdrawal Discharge Data Allergies Allergy/AdvReac Type Severity Reaction Status Date / Time No Known Allergies Allergy Unverified 05/02/19 12:06 Consultations 05/02/19 14:21 ED Decision to Admit Stat 05/02/19 18:01 Consult Case Management - Discharge Planning Routine Ordered Studies 05/02/19 12:06 CT abd pelvis IV con only Stat Hospital Course (1) Abdominal pain: Presented with abdominal pain after binge drinking for about 2 weeks. LFTs essentially normal (except for minimally elevated AST). Initial lipase is 349, repeat 269. CT of abdomen and pelvis showed mild peripancreatic fat infiltration along the pancreatic head suggesting interstitial edematous pancreatitis. No biliary tract abnormalities were appreciated. Unlikely that patient had acute pancreatitis with a normal serum lipase. Symptomatic improvement with Maalox. Suspect gastritis secondary to recent alcohol consumption. No gross GI bleeding. Hgb 15.7 --> 14.1 (with IV fluids) --> 14.8. Increase PPI to BID. Symptoms improved. Diet advanced and tolerated. (2) Alcohol withdrawal: Last alcohol consumption was about 4 days prior to admission. Patient was receiving withdrawal protocol at [facility], but felt too sedated. He declined other options here such as gabapentin protocol. Received lorazepam PRN for withdrawal symptoms and anxiety; last dose about 18 hours ago. Continue thiamine, multivitamins. (3) Benzodiazepine dependence: Was taking alprazolam chronically at home. Probably withdrawing from benzodiazepines as well as alcohol. Management as noted above. (4) Alcoholism: Ongoing support/counseling. Patient is motivated to be sober is returning to [facility] for ongoing rehab. (5) DVT prophylaxis: SCDs ordered. Ambulating. (6) Discharge planning issues: Returning to [facility]. Follow-up with PCP in [place] upon returning home. Total Time Total Time Spent Total Time Spent (In Minutes): 35 Discharge Plan Discharge Items Patient Disposition: Drug & Alcohol Rehab Reason For Visit: abdominal pain Discharge Diagnosis: abdominal pain- probable gastritis alcohol dependence and withdrawal benzodiazepine dependence and withdrawal Condition on Discharge: Good Activity: Resume your previous activity Non-emergency contact: Primary Care Provider and Hospitalist Call non-emergency contact if: you have any medication questions, your pain is not controlled and your temperature is above 101 Follow-up/Referrals: PCP,NO [Primary Care Provider] - Diet: Regular Addtl Attending Provider Instructions: MEDICATION CHANGES: Take esomeprazole magnesium (Nexium) twice a day for 1 week, then go back to once daily. Avoid nonsteroidal anti-inflammatory medicines like ibuprofen (Advil, Motrin) and naproxen (Aleve)- they can upset your stomach and cause ulcers. SUMMARY OF TEST RESULTS: CT scan showed possible inflammation of pancreas, but blood tests for pancreatic enzyme lipase was normal. RECOMMENDATIONS FOR FOLLOW-UP: Ongoing rehab at [facility]. OTHER INSTRUCTIONS: Be careful with the following foods / beverages until your stomach in 100% better: roughage like raw vegetables acid like orange juice or tomato sauce spicy foods. Avoid all use of alcohol, benzodiazepines like alprazolam (Xanax), and strong pain medications. Seek medical attention if you have: * temperature above 101 * chest pain or trouble breathing * worsening or persistent abdominal pain, nausea, vomiting * diarrhea, dark stools or bloody stools * any unanswered questions or concerns Call [phone] if symptoms are severe. Please take good care of yourself. Call if you have any questions or problems. You can reach a [facility] hospitalist on duty at [facility] 24 hours a day by calling [phone]. My cell # is [phone]. Pending Studies at Discharge: No Stand-Alone Forms: Call Back Authorization, My [facility] Skilled Items Patient informed of condition?: Yes DNR: No Discharge Level of Care: Other Communicable Disease: No Discharge Prognosis: Improving Lines: None Urinary Catheter: No Medications and DC Order Prescriptions: Continued esomeprazole magnesium [Nexium] 40 mg Capsule,Delayed Release(Dr/Ec) 40 mg PO DAILY RF: 0 multivitamin Tablet 1 tab PO DAILY RF: 0 thiamine HCl (vitamin B1) 100 mg Tablet 100 mg PO DAILY RF: 0 folic acid 1 mg Tablet 1 mg PO DAILY RF: 0 Discontinued alprazolam [Xanax] 2 mg Tablet 2 mg PO HS RF: 0 levetiracetam [Keppra] 500 mg Tablet 500 mg PO BID RF: 0 diazepam [Valium] 10 mg Tablet 10 mg PO HS RF: 0 Admission Data Admit Date/Time: 05/02/19 15:24 Attending Provider: Ector Kim Admit Provider: Lakshmi Ramirez Primary Care Provider: PCP,NO Other Providers: Lakshmi Ramirez
[2019-05-06] MEDS: LORazepam 1 MG TAB PO PRN (14:20)
== END 2019-05-06 15:51 | disposition alcohol treatment (31) | DRG 392 ==
LOC: ED 10:44 → 2W 15:24 → SUATTDRO 15:24 → 2W 17:34 → 2N 05-03 10:41